=== PATIENT | female | born 1995 | race Asian ===

== ENCOUNTER 2019-08-18 09:58 | Emergency (ER) | payer OTHER ==
[~2019-08-18] VITALS: Ht 157.5 cm; Wt 54.5 kg
[2019-08-18 11:17] VITALS: BP 135/78
== END 2019-08-18 11:08 | disposition home or self-care (01) ==
LOC: ER 09:58
DX: Z20.828 Contact with and (suspected) exposure to other viral communicable diseases (principal)
CPT/HCPCS: 99281